=== PATIENT | female | born 1980 | race Caucasian/White ===

== ENCOUNTER 2017-04-16 09:40 | Emergency (ER) | payer OTHER ==
[2017-04-16 10:15] VITALS: BP 102/68
--- NOTE | 2017-04-16 11:02 | ED ---
Upper Extremity Pain - HPI Summary HPI Summary: 37 yr old female with the complaint of right hand pain. Onset one week ago. She closed her hand in a car door. She has pain mostly in the 4/5 MP joint areas right hand. No fever, no chills. - History of Current Complaint Chief Complaint: UCUpperExtremity Stated Complaint: RT HAND INJ Time Seen by Provider: 04/16/17 10:52 Hx Last Menstrual Period: 04/09/17 - Allergies/Home Medications Allergies/Adverse Reactions: Allergies Allergy/AdvReac Type Severity Reaction Status Date / Time codeine Allergy Itching Verified 04/16/17 10:08 hydrocodone Allergy Itching Verified 04/16/17 10:08 morphine Allergy Itching Verified 04/16/17 10:08 oxycodone Allergy Itching Verified 04/16/17 10:08 Penicillins Allergy Hives Verified 04/16/17 10:08 PMH/Surg Hx/FS Hx/Imm Hx Respiratory History: Reports: Hx Asthma - as a child - Surgical History Surgery Procedure, Year, and Place: tubal ligation, t/a, ear tubes Infectious Disease History: No Infectious Disease History: Denies: Traveled Outside the [place] in Last 30 Days - Family History Known Family History: Positive: Hypertension - Social History Alcohol Use: None Substance Use Type: Reports: None Smoking Status (MU): Never Smoked Tobacco Review of Systems Constitutional: Negative Positive: Other - trauma to hand All Other Systems Reviewed And Are Negative: Yes Physical Exam Triage Information Reviewed: Yes Vital Signs On Initial Exam: Initial Vitals Temp Pulse Resp BP Pulse Ox 98.9 F 61 16 102/68 100 04/16/17 10:08 04/16/17 10:08 04/16/17 10:08 04/16/17 10:08 04/16/17 10:08 Vital Signs Reviewed: Yes Appearance: Positive: Well-Appearing, No Pain Distress Skin: Positive: Warm, Skin Color Reflects Adequate Perfusion Head/Face: Positive: Normal Head/Face Inspection Eyes: Positive: EOMI Neck: Positive: Nontender Respiratory/Lung Sounds: Positive: Clear to Auscultation, Breath Sounds Present Cardiovascular: Positive: Pulses are Symmetrical in both Upper and Lower Extremities - she has strong radial pulse right hand and good cap refill digits Musculoskeletal: Positive: Other - she has tenderness over the 4/5 mp joints right hand without much STS and no cellulitis. there is mild red/bruise color over the 5th MP. ROM at these MPs are decreased. Neurological: Positive: Sensory/Motor Intact, Alert, Oriented to Person Place, Time, CN Intact II-III Psychiatric: Positive: Normal - [place] Coma Scale Best Eye Response: 4 - Spontaneous Best Motor Response: 6 - Obeys Commands Best Verbal Response: 5 - Oriented Coma Scale Total: 15 Diagnostics - Vital Signs Vital Signs Temp Pulse Resp BP Pulse Ox 04/16/17 10:08 98.9 F 61 16 102/68 100 - Laboratory Lab Statement: Any lab studies that have been ordered have been reviewed, and results considered in the medical decision making process. - Radiology right hand Xray Interpretation: No Acute Changes Radiology Interpretation Completed By: Radiologist Course/Dx - Course Course Of Treatment: 37 yr old with neg xray. DC home. referral to ortho for any further questions. - Diagnoses Provider Diagnoses: Contusion, hand Discharge - Discharge Plan Condition: Good Disposition: HOME Patient Education Materials: Contusion in Adults (ED) Referrals: No Primary Care Phys,NOPCP [Primary Care Provider] -
--- NOTE | 2017-04-16 11:16 | RAD ---
HISTORY: Right hand trauma COMPARISONS: February 18, 2016 VIEWS: 4, Frontal, lateral, and oblique views of the right hand FINDINGS: BONE DENSITY: Normal. BONES: There is no displaced fracture. JOINTS: There is mild osteoarthritis of the first MCP joint. ALIGNMENT: There is no dislocation. SOFT TISSUES: Unremarkable. OTHER FINDINGS: None. IMPRESSION: OSTEOARTHRITIS. NO ACUTE OSSEOUS INJURY. IF SYMPTOMS PERSIST, RECOMMEND REPEAT IMAGING.
== END 2017-04-16 11:43 | disposition home or self-care (01) ==
LOC: UCCORT 09:40
DX: S60.221A Contusion of right hand, initial encounter (principal); W23.0XXA Caught, crushed, jammed, or pinched between moving objects, initial encounter; Y93.9 Activity, unspecified; Y92.9 Unspecified place or not applicable
CPT/HCPCS: 99211; G0463